=== PATIENT | male | born 1950 | race Caucasian/White ===

== ENCOUNTER 2021-09-19 01:46 | Observation (INO) | payer MEDICARE ==
[~2021-09-19] VITALS: Ht 175.3 cm; Wt 81.6 kg
[2021-09-19 02:36] LABS: HEMOGLOBIN 14.3 gm/dl (14.0-17.5); RED BLOOD COUNT 4.61 M/UL (4.20-5.50); WHITE BLOOD COUNT 8.9 K/UL (4.5-11.0)
[2021-09-19 02:45] LABS: BUN/CREATININE RATIO 18 (0-10)
[2021-09-19] MEDS ORDERED: CLARITIN (10:37)
[2021-09-19] MEDS ORDERED: OMEPRAZOLE (10:37)
[2021-09-19] MEDS ORDERED: SINGULAIR (10:37)
[2021-09-19] MEDS ORDERED: FLOMAX (10:39)
[2021-09-19] MEDS ORDERED: BACLOFEN (10:40)
[2021-09-19] MEDS ORDERED: VICODIN (10:40)
[2021-09-19] MEDS ORDERED: QUETIAPINE (10:40)
[2021-09-19] MEDS ORDERED: ASPIRIN (10:41)
[2021-09-19] MEDS ORDERED: ZOFRAN4 MG PO (10:49)
== END 2021-09-19 11:40 | disposition home or self-care (01) ==
LOC: ER1 01:46 → CDU 06:16
PROVIDERS: Emergency Medicine; ADMIT Internal Medicine
DX: R10.9 Unspecified abdominal pain (principal); K21.9 Gastro-esophageal reflux disease without esophagitis; Z20.822 Contact with and (suspected) exposure to COVID-19; R11.2 Nausea with vomiting, unspecified; I10 Essential (primary) hypertension; N40.0 Benign prostatic hyperplasia without lower urinary tract symptoms; F11.10 Opioid abuse, uncomplicated; M19.90 Unspecified osteoarthritis, unspecified site; Z72.89 Other problems related to lifestyle
CPT/HCPCS: 71045; 80053; 82550; 82553; 83605; 83690; 83874; 84484; 85025; 93005; 96374; 96375; 96376; 99285; C9113; G0378; J0696; J1170; J2270; J2405; J3411; J7030; Q9967; U0002